=== PATIENT | male | born 1950 | race Caucasian/White ===

== ENCOUNTER 2022-02-14 07:56 | Outpatient (CLI) | payer OTHER | END 2022-02-14 07:57 | disposition home or self-care (01) | LOC: NUCLEAR 07:56 | PROVIDERS: ATTEND Surgery | DX: I73.9 Peripheral vascular disease, unspecified (principal) ==

== ENCOUNTER → 2022-02-19 08:48 | Outpatient (CLI) | payer OTHER | END | disposition home or self-care (01) | LOC: NUCLEAR 08:48 | PROVIDERS: ATTEND Surgery | DX: I87.2 Venous insufficiency (chronic) (peripheral) (principal) ==